=== PATIENT | male | born 1970 ===

== ENCOUNTER 2022-09-19 08:27 | Emergency (ER) | payer OTHER, SELFPAY ==
[2022-09-19 08:36] VITALS: BP 157/94; PULSE 73; RESP 20; TEMP 36.9; O2SAT 98
--- NOTE | 2022-09-19 08:56 | ED.EAR ---
HPI - Ear Problem General Chief complaint: Ear Stated complaint: Ear Pain Source: patient Mode of arrival: ambulatory Limitations: no limitations History of Present Illness HPI Narrative: Patient presents for evaluation of right-sided ear pain for the last 5 days. He indicates he has chronic hearing loss and uses hearing aids. He believes that the hearing aid caused his right ear to become infected. He reports some drainage from that ear and swelling. He irrigated the ear with warm water, took some dayquil and applied some OTC ear drops which all seemed to help. pain did radiate into right side of his face and right jaw. No fever, chills, nausea or vomiting. Related Data Home Medications Medication Instructions Recorded Confirmed No Home Medications 09/19/22 09/19/22 Allergies Allergy/AdvReac Type Severity Reaction Status Date / Time morphine Allergy Loss of Verified 09/19/22 08:54 Consciousness Review of Systems Review of Systems: CONSTITUTIONAL: Denies fever, chills, or sweats. EYES: Denies visual changes, redness, or discharge. ENT: Reports right sided ear pain and drainage. Reports chronic hearing loss. Denies rhinorrhea, congestion, sore throat CARDIOVASCULAR: Denies chest pain, palpitations, or edema. RESPIRATORY: Denies cough or dyspnea. GASTROINTESTINAL: Denies abdominal pain, nausea, vomiting, or diarrhea. GENITOURINARY: Denies dysuria or hematuria. SKIN: Denies rash or itching. MUSCULOSKELETAL: Denies back pain, joint pain, or myalgia. NEUROLOGIC: Denies headache, numbness, dizziness, or weakness. PSYCHIATRIC: Denies anxiety or depression. [facility] Past Medical History Medical History Hearing loss Surgical History Surgical History History of back surgery History of ear surgery History of knee surgery Family History Family History Mother Family history non-contributory Social History Social History Smoking status: Current every day smoker Gender identity (if verbalized by the patient): Male Spiritual care concerns: No Exam Narrative: GENERAL: Well-appearing, well-nourished, and in no acute distress. HEAD: Normocephalic, atraumatic. EYES: PERRLA and EOMI. ENT: Nares clear, no rhinorrhea or epistaxis. Mucous membranes moist. Oropharynx without tonsillar hypertrophy exudate or other lesions. There is swelling, erythema and white/yellow exudate in right ear canal NECK: Supple. No adenopathy or masses. No carotid bruits or JVD CHEST: Clear to auscultation. No respiratory distress. No wheezes rales or rhonchi HEART: Regular rate and rhythm. No murmur heard. Normal peripheral pulses. ABDOMEN: Soft, nontender, nondistended, normal active bowel sounds. EXTREMITIES: Normal range of motion. No edema. SKIN: Warm, dry, no rash. NEURO: No focal deficits. Alert and oriented x3. PSYCH: Normal mood and affect. Course Course Emergency Course: This is a 52-year-old male who presented for evaluation of right-sided ear pain and drainage. On exam he has evidence of otitis externa. Will treat with ofloxacin. Follow up outpatient for further evaluation and treatment include the ER for worsening symptoms. Patient is in agreement with plan of care. Level of Care: Express Care Visit Vital Signs Vital signs: Vital Signs Temperature 36.9 C 09/19/22 08:36 Pulse Rate 73 09/19/22 08:36 Respiratory Rate 20 09/19/22 08:36 Blood Pressure 157/94 H 09/19/22 08:36 Pulse Oximetry 98 09/19/22 08:36 Oxygen Delivery Room Air 09/19/22 08:36 Temperature 36.9 C 09/19/22 08:36 Pulse Rate 73 09/19/22 08:36 Respiratory Rate 20 09/19/22 08:36 Blood Pressure 157/94 H 09/19/22 08:36 Pulse Oximetry 98 09/19/22 08:36 Oxygen Delivery Mariam
== END 2022-09-19 09:02 | disposition home or self-care (01) ==
PROVIDERS: Emergency Provider Nurse Practitioner; PCP Family Medicine
DX: H60.91 Unspecified otitis externa, right ear (principal)
CPT/HCPCS: 99213; G0463

== ENCOUNTER 2023-01-18 11:01 | Emergency (ER) | payer OTHER, SELFPAY ==
[2023-01-18 11:09] VITALS: BP 139/84; PULSE 104; RESP 16; TEMP 37.1; O2SAT 95
--- NOTE | 2023-01-18 11:29 | ED.NAVMDI ---
HPI - Nausea/Vomiting/Diarrhea General Chief complaint: Nausea/Vomiting/Diarrhea Stated complaint: Nausea/Diarrhea Time Seen by Provider: 01/18/23 11:30 Source: patient and RN notes reviewed Mode of arrival: ambulatory Limitations: no limitations History of Present Illness HPI Narrative: 52-year-old male presented for complaint of diarrhea and nausea since 0230 this morning. States it occurred about every 5 minutes for 4 hours. States he feels super dehydrated. Reports decreased appetite. Has been drinking lemonade and water. Denies changes to medication or recent abx. States he ate taco isaac last night. denies Chest pain, palpitations,abdominal pain, flank pain, vomiting, hematuria, hematochezia or melena. denies sick contacts. history of bladder cancer. Concurrently smokes 3/4 pack per day, down from 2ppd. Related Data Home Medications Medication Instructions Recorded Confirmed bupropion HCl 100 mg tablet,12 hr mg PO 01/18/23 sustained-release lisinopril 01/18/23 Allergies Allergy/AdvReac Type Severity Reaction Status Date / Time morphine Allergy Loss of Verified 09/19/22 08:54 Consciousness Review of Systems Review of Systems: CONSTITUTIONAL: Denies body aches, fever, chills ENT: Denies rhinorrhea, congestion CARDIOVASCULAR: Denies chest pain, palpitations, or edema. RESPIRATORY: Denies cough or dyspnea. GASTROINTESTINAL: Endorses nausea, diarrhea. Denies vomiting, abdominal pain, hematochezia, melena GENITOURINARY: Denies dysuria, hematuria, or CVA tenderness. SKIN: Denies rash, itching, or wounds. MUSCULOSKELETAL: Denies back pain, joint pain, or myalgia. NEUROLOGIC: Denies headache, numbness, tingling, or weakness. All systems reviewed & are unremarkable except as noted in HPI and below PMFSH Past Medical History Medical History (Updated 01/18/23 @ 11:54 by Michaela Castro APRN) Bladder cancer Hearing loss Hypertension Surgical History Surgical History History of back surgery History of ear surgery History of knee surgery Family History Family History Mother Family history non-contributory Social History Social History (Reviewed 01/18/23 @ 11:54 by COIR Hernandez Smoking status: Current every day smoker Gender identity (if verbalized by the patient): Male Spiritual care concerns: No Comments At time of signature, I have reviewed and agree with nursing past medical, surgical, social and family history unless otherwise noted. Please see nursing chart for further information. There is no relevant family history pertinent to the presenting complaint Exam Narrative: GENERAL: ill-appearing, in no acute distress. EYES: EOMI. Conjunctivae normal. ENT: Mucous membranes pink and moist. CHEST: No respiratory distress. Clear to auscultation. HEART: Regular rate and rhythm. No murmur appreciated. Normal peripheral pulses. ABDOMEN: abd soft, nondistended, normal active bowel sounds. Nontender abdomen; No guarding, rebound tenderness, asymmetry EXTREMITIES: Normal range of motion. No edema. SKIN: Warm, dry, no rash. Capillary refill normal. Normal skin turgor. NEURO: No focal deficits. Alert and oriented x3. PSYCH: Normal affect. Course Course Emergency Course: Patient is aware of diagnosis, understands and agrees to treatment plan. Anticipatory guidance given. Patient agrees to follow-up as directed and is aware of reasons to seek care at the emergency department. Portions of this record may have been created with voice recognition software Level of Care: Express Care Visit Vital Signs Vital signs: Vital Signs Temperature 98.7 F 01/18/23 11:09 Pulse Rate 104 H 01/18/23 11:09 Respiratory Rate 16 01/18/23 11:09 Blood Pressure 139/84 01/18/23 11:09 Pulse Oximetry 95 01/18/23 11:09 Oxygen Delivery Room Air 01/18/23 1
== END 2023-01-18 11:46 | disposition home or self-care (01) ==
PROVIDERS: Emergency Provider Nurse Practitioner Family; PCP Family Medicine
DX: R19.7 Diarrhea, unspecified (principal); I10 Essential (primary) hypertension; F17.200 Nicotine dependence, unspecified, uncomplicated
CPT/HCPCS: 99213; G0463

== ENCOUNTER 2024-12-07 14:36 | Emergency (ER) | payer BC, SELFPAY ==
--- NOTE | 2024-12-07 14:39 | ED_ITS ---
HPI - URI/Sore Throat General Chief Complaint: Upper Respiratory Infection Stated Complaint: Cough/Fever/Headache Time Seen by Provider: 12/07/24 14:39 Source: patient Mode of arrival: ambulatory Limitations: no limitations History of Present Illness HPI Narrative: Patient is a 54-year-old male that presents with cough, fever and headache that started last night. Patient also reports right ear pain for a few days, with history of ear infections. Patient wears hearing aids. Patient has history of bronchitis. Denies any congestion, sore throat, ear pain, nausea, vomiting, diarrhea. Has not taken anything for symptoms. Related Data Home Medications ?Medication ?Instructions ?Recorded ?Confirmed ?Last Taken ?Type bupropion HCl 100 mg tablet,12 hr mg PO 01/18/23 Unknown History sustained-release lisinopril 01/18/23 Unknown History Allergies Allergy/AdvReac Type Severity Reaction Status Date / Time morphine Allergy Loss of Verified 12/07/24 15:06 Consciousness Review of Systems Review of Systems: All systems reviewed & are unremarkable except as noted in HPI and below Constitutional: Constitutional: Denies body ache(s), Denies chills, Denies fatigue, Reports fever(s), Reports headache(s), Denies malaise and Denies weakness Eyes: Eyes: Denies blurry vision, Denies itchy eyes and Denies loss of vision ENT: Denies otalgia, Denies headache(s), Denies nasal congestion, Denies sinus pain and Denies sore throat Cardiovascular: Cardiovascular: Denies chest pain, Denies irregular heart rhythm and Denies dyspnea Respiratory: Respiratory: Reports cough and Denies dyspnea Gastrointestinal: Gastrointestinal: Denies abdominal pain, Denies diarrhea, Denies nausea and Denies vomiting Musculoskeletal: Musculoskeletal: Denies back pain, Denies myalgias and Denies arthralgias Integumentary/Breasts: Skin/Breast: Denies pruritus and Denies rash Neurologic: Reports headache(s), Denies loss of vision and Denies weakness Psychiatric: Psychiatric: Reports no additional psychiatric complaints Endocrine: Endocrine: Denies fatigue Allergic/Immunologic: Allergic/Immunologic: Denies itchy eyes PMFSH Past Medical History Medical History Hypertension Bladder cancer Hearing loss Surgical History Surgical History History of back surgery History of knee surgery History of ear surgery Family History Family History Mother Family history non-contributory Social History Social History Smoking status: Current every day smoker Gender identity (if verbalized by the patient): Male Spiritual care concerns: No Comments At time of signature, agree with nursing past medical, surgical, social and family history. There is no relevant family history pertinent to the presenting complaint. Exam Const: General: cooperative, healthy appearing, comfortable, no acute distress and well nourished Nutritional Appearance: well nourished Orientation/consciousness: patient oriented x3 Limitations: no limitations HENMT: Head: normal to inspection, normocephalic and atraumatic Ears: hearing grossly normal bilaterally, external ears normal, TM normal on the left, EAC's normal, no periauricular adenopathy and TM abnormal bulging on the right and erythematous on the right Face/Nose/Sinus: Normal external nose present, Abnormal mucous membranes and turbinates present erythematous bilateral and diffuse, normal facial exam, sinuses nontender and face symmetric Face and sinus: normal facial exam, sinuses nontender and face symmetric Mouth: Yes Normal oral and palatal mucosa present, Yes lip normal, Yes tongue normal, Yes Normal salivary glands and ducts present, Yes oropharynx normal and Yes moist mucous membranes Teeth and gingiva: dentition normal Throat: posterior oropharynx normal, tonsils normal and uvula midline Eyes: General: appearance normal, both eyes and all related structures Alignment and Position: alignment normal and position normal Periorbital: periorbital findings normal Eyelids: eyelids normal Pupils: Equal, round and reactive pupils present Neck: Neck: normal visual inspection, full ROM, no lymphadenopathy and supple Chest: Chest palpation & inspection: normal inspection of the chest and normal palpation of entire chest wall Resp: Effort & Inspection: normal respiratory effort, able to speak in complete sentences and Actively coughing dry Auscultation: clear to auscultation bilaterally, no crackles, no rales, no rhonchi and no wheezes Cardio: Rate: regular rate Rhythm: regular rhythm Heart sounds: S1 normal heart sound present and S2 normal heart sound present GI: Inspection: normal to inspection Skin: General skin exam: normal color and no rashes or lesions noted Neuro: General: patient oriented x3 and moves all extremities Cranial nerves: Yes Equal, round and reactive pupils present Speech: normal speech Gait exam (Neuro): Normal gait present Extrem: General: normal to inspection, full ROM and no edema Psych: Appearance: grossly normal and well kempt Mental Status: mental status grossly normal Speech and movement: Normal speech and movement present Affect: normal affect Attitude: cooperative Thought process: Normal thought process present Course Course Emergency Course: Discharge instructions reviewed with patient, as well as provided in writing per nursing staff. The instructions also include specific and strict return/GO TO THE ER as well as f/u information. All questions have been answered, and the patient deny any further questions with discharge and discharge plan. Portions of this record may have been created with voice recognition software Level of Care: Express Care Visit Vital Signs Vital signs: Vital Signs Temperature 36.5 C 12/07/24 14:50 Pulse Rate 74 12/07/24 14:50 Respiratory Rate 16 12/07/24 14:50 Blood Pressure 134/82 12/07/24 14:50 Pulse Oximetry 96 12/07/24 14:50 Oxygen Delivery Room Air 12/07/24 14:50 Temperature 36.5 C 12/07/24 14:50 Pulse Rate 74 12/07/24 14:50 Respiratory Rate 16 12/07/24 14:50 Blood Pressure 134/82 12/07/24 14:50 Pulse Oximetry 96 12/07/24 14:50 Oxygen Delivery Room Air 12/07/24 14:50 Reviewed MDM - URI/Sore Throat MDM Narrative Medical decision making narrative: Pt well hydrated appearing, in no respiratory distress, hemodynamically stable. Recommend supportive care. The patient is stable at time of discharge the clinical impression was discussed and the patient was given the opportunity to ask questions, which were addressed as completely as possible given the infor mation available at present. Anticipatory guidance and return to care precautions were discussed and the importance of primary care follow-up was stressed and encouraged. The patient voiced understanding of the plan, indications to return, and the need for follow-up. Differential diagnosis considered: Prado virus, strep pharyngitis, allergic rhinitis, upper respiratory tract infection, sinusitis, rhinosinusitis, nasopharyngitis. viral pharyngitis, otitis media, otitis externa, otitis effusion, foreign body, cerumen impaction, viral syndrome, and influenza.? Exam findings show no acute concerns or changes; patient is non-toxic appearing and is in no distress.? Patient is appropriate for outpatient treatment and follow- up.? Medical Records Attestation: I reviewed the patient's medical records. Lab Data Attestation: I reviewed the patient's lab results. Labs: negative for covid and flu Discharge Plan Discharge Clinical Impression: Bronchitis Otitis media Qualifiers: Otitis media type: suppurative Chronicity: acute Laterality: right Recurrence: non-recurrent Spontaneous tympanic membrane rupture: without spontaneous rupture Qualified Code(s): H66.001 - Acute suppurative otitis media without spontaneous rupture of ear drum, right ear Patient Disposition: Home, Self-Care Condition: Stable Instructions: Ear Infection (GEN), Acute Bronchitis (ED) Additional Instructions: Take antibiotic as prescribed. Take steroids per package instruction. Use Tessalon Perles as needed for cough. Use inhaler with spacer as needed. Other symptomatic treatments include: -Alternate Tylenol and Motrin per package directions for fever or pain. -Antihistamine medication such as Benadryl at night and Zyrtec/Claritin/Leslie during the day can help improve symptoms. -Use Flonase twice a day for 5 days then daily to help reduce the inflammation and dry up your sinuses. -You can also use Sudafed or Mucinex. Be sure to drink plenty of water with these medications at least 8 ounces with every dose and it is important to drink 8 to 10 glasses of water per day. Water is a natural decongestant -Eat and drink things that are easy to swallow, like tea or soup, or popsicles. -Oral rinses such as: Salt water gargles and/or may use topical anesthetic (eg. Chloraseptic spray) or lozenges to relieve dryness or throat pain). -Frequent hand washing or hand line department supervisor is one of the best ways to prevent spread of infection. -Using a vaporizer or humidifier at night will also help thin secretions and help with coughing up phlegm. -Follow up with primary care provider in 3-5 days if condition is not improving - For new or worsening symptoms go directly to the nearest ER Patient Language: Malay Prescriptions: New (DME) Aerochamber MV Spacer See Rx Instructions .Route Qty: 1 0RF Rx Instructions: As directed amoxicillin 875 mg tablet 875 mg PO Q12H 7 Days Qty: 14 0RF benzonatate 100 mg capsule 100 mg PO BID PRN (Reason: cough) Qty: 14 0RF methylprednisolone [Medrol (Valerio)] 4 mg tablets,dose pack See Rx Instructions .ROUTE .COMPLEX Qty: 21 0RF Rx Instructions: orally per package directions albuterol sulfate 90 mcg/actuation HFA aerosol inhaler 2 puff inhalation QID PRN (Reason: shortness of breath or wheezing) Qty: 6.7 0RF fluticasone propionate [Flonase Allergy Relief] 50 mcg/actuation spray,suspension 1 spray intranasal DAILY Qty: 16 0RF Rx Instructions: administer into each nostril No Action bupropion HCl 100 mg tablet sustained-release 12 hr PO lisinopril ondansetron 4 mg tablet,disintegrating 4 mg PO Q8H PRN (Reason: nausea and vomiting) Qty: 20 0RF Follow-up/Referrals: Ozzy,Vicente Kelly MD [Primary Care Provider] - 3 Days Stand Alone Forms: Work/School Release IP Time of Disposition: 15:31
[2024-12-07 14:50] VITALS: BP 134/82; PULSE 74; RESP 16; TEMP 36.5; O2SAT 96
[2024-12-07 16:31] LABS: EDCOVIDSCREEN Negative (Negative); EDINFLUASCREEN Negative (Negative); EDINFLUBSCREEN Negative (Negative)
--- OUTSIDE RECORDS SUMMARY | 2024-12-08 05:46 | XMS_ITS | Clinical Summary ---
Author Organization [facility] Address [address] [place] [address] Phone Care Team Providers Care Clamp Truck Driver Name Role Phone Vicente Preciado MD Primary Care Provider [phone] Allergies Active Allergy Reactions Criticality Noted Date Comments Morphine Anaphylaxis 06/04/2018 Medications terazosin (HYTRIN) 2 MG CapsuleIndicatio ns:last 3 days Take 2 mg by mouth daily. Active buPROPion SR (WELLBUTRIN SR) 100 MG TABLET SR 12 HR 1 09/12/2018 Active Active Problems Problem Noted Date Diagnosed Date Malignant neoplasm of overlapping sites of bladd er 06/14/2018 Family History Medical History Relation Name Comments Kidney Stones Brother Cancer Father colon cancer Congestive Heart Failure Father Cancer Maternal Aunt pancreatic can cer Heart Attack Maternal Grandfather Heart Disease Maternal Grandmother Prostate Cancer Other 1 cousin Kidney Stones Other 2 nephew Cancer Paternal Uncle 1 Cancer Paternal Uncle 2 Cancer Paternal Uncle 3 Cancer Paternal Uncle 4 Cancer Paternal Uncle 5 Cancer Paternal Uncle 6 Cancer Paternal Uncle 7 Cancer Paternal Uncle 8 Cancer Paternal Uncle 9 Cancer Paternal Uncle 10 Relation Name Status Comments Brother Father Maternal Aunt Maternal Grandfather Maternal Grandmother Other 1 cousin Alive Other 2 nephew Alive Paternal Uncle 1 Paternal Uncle 2 Paternal Uncle 3 Paternal Uncle 4 Paternal Uncle 5 Paternal Uncle 6 Paternal Uncle 7 Paternal Uncle 8 Paternal Uncle 9 Paternal Uncle 10 Social History Tobacco Use Types Packs/Day Years Used Date Smoking Tobacco: Former Cigarettes Q uit: 01/04/2019 Smokeless Tobacco: Never Tobacco Cessation:Counseling Given: No Comments:4 cig per day Alcohol Use Standard Drinks/Week Comments Yes 0 (1 standard drink = 0.6 oz pur e alcohol) rarely Sexually Active Control Partners Comments Yes Female Sex and Gender Information Value Date Recorded Sex Assigned at Not on file Legal Sex Male 8:06 PM CDT Gender Identity Not on file Sexual Orientation Not on file Last Filed Vital Signs Vital Sign Reading Time Taken Comments Blood Pressure 122/88 01/16/2021 9:05 AM MANAGER GYN Pulse 72 01/16/2021 8:51 AM MANAGER GYN Temperature 36.8 ??C (98.2 ??F) 01/16/2021 8:51 AM CS T Respiratory Rate 16 01/16/2021 8:51 AM MANAGER GYN Oxygen Saturation 98% 01/16/2021 8:51 AM MANAGER GYN Inhaled Oxygen Concentration - - Weight 91.9 kg (202 lb 9.6 oz) 01/16/2021 8:51 A M MANAGER GYN Height 157.5 cm (5' 2 ) 01/16/2021 8:51 AM MANAGER GYN Body Mass Index 37.06 01/16/2021 8:51 AM MANAGER GYN Plan of Treatment Health Maintenance Due Date Last Done Comments Hepatitis C Virus (HCV) Screening 1969 TdaP Immunization 1969 Hepatitis B Immunization (1 of 3 - 19+ 3-dose series) 1988 Pneumococcal Immunization (5 0+ years) (1 of 2 - PCV) 1988 Zoster Immunization (1 of 2) 1988 Colonoscopy 2014 Colorectal Cancer Screening 2014 Cologuard 2019 Immunochemical Fecal Occult Blood 2019 SARS-COV-2 Immunization (3 - Pfizer risk series) 03/30/2021 03/02/2021, 02/09/2021 PSA Discussion 2024 Influenza Immunization (#1) 2024 Respiratory Syncytial Virus (RSV) Immunization (Adult) (1 - 1-dose 75+ series) 2044 Meningococcal Immunization (ACWY) Aged Out No longer eligible b ased on patient's age to complete this topic Rotavirus Immunization Aged Out No lo nger eligible based on patient's age to complete this topic Insurance [facility] [place] [id number] Care Teams Clamp Truck Driver Relationship Specialty Start Date End Date Vicente Preciado MD [address] [place] [address] PCP - General Family Medicine 06/04/18
--- OUTSIDE RECORDS SUMMARY | 2024-12-08 05:46 | XMS_ITS | Clinical Summary ---
Author Organization [facility] Address [address] [place] [address] Care Team Providers Care Solar Thermal Technician Name Role Phone Unavailable Primary Care Provider Unavailabl e Source Comments [facility],non-owned Affiliates and Associated Physician Practices is amultiple site organization consisting of ambulatory clinics and hospital sitesin [place], [place], [place] and [place]. This disclosure is being madepursuant to the Care Everywhere program and may not contain all information available regarding this patient. Last updated 18.[facility] [employer] Social History Tobacco Use Types Packs/Day Years Used Date Smoking Tobacco: Never Assessed Sex and Gender Information Value Date Recorded Sex Assigned at Not on file Gender Identity Not on file Sexual Orientation Not on file Plan of Treatment Health Maintenance Due Date Last Done Comments COLOGUARD (AGES 45-75) - COL ON CA SCREENING 1969 COLON MONITORING 1969 COLONOSCOPY - COLON CA SCREENING 1969 CT COLONOGRAPHY - COLON CA SCREENING 1969 Colorectal Cancer Screening 1969 FIT - COLON CA SCREENING 1969 FLEX SIG - COLON CA SCREENING 1969 LIPID TESTING 1969 HIV SCREENING 1984 HEPATITIS C SCREENING 07/10/1987 DTAP/TDAP/TD VACCINES (1 - Tdap) 1988 HEPATITIS B VACCINE (1 of 3 - 19+ 3-dose series) 1988 PNEUMOCOCCAL VACCINE 50+ (1 of 1 - PCV) 2019 ZOSTER VACCINE (1 of 2) 2019 COVID-19 VACCINE (2023-2 5 season) 2024 INFLUENZA VACCINE (#1) 2024 DEPRESSION SCREENING 11/15/2024 HIB VACCINE Aged Out No longer eligi ble based on patient's age to complete this topic HPV VACCINE Aged Out No longer eligi ble based on patient's age to complete this topic MENINGOCOCCAL (Group B) VACCINE Aged Out No longer eligible based on patient's age to complete this topic MENINGOCOCCAL VACCINE Aged Out No celestina luzma eligible based on patient's age to complete this topic PNEUMOCOCCAL VACCINE Aged Out No long er eligible based on patient's age to complete this topic
--- OUTSIDE RECORDS SUMMARY | 2024-12-08 05:46 | XMS_ITS | Patient Health Summary ---
Author Organization [facility] Address [address] [place] [address] Care Team Providers Care Jewel Inserter Name Role Phone Unavailable Primary Care Provider Unavailabl e Note from [facility],non-owned Affiliates and Associated Physician Practices is amultiple site organization consisting of ambulatory clinics and hospital sitesin [place], [place], [place] and [place]. This disclosure is being madepursuant to the Care Everywhere program and may not contain all information available regarding this patient. Last updated 18.[facility] [place] Social History Tobacco Use Types Packs/Day Years Used Date Smoking Tobacco: Never Assessed Sex and Gender Information Value Date Recorded Sex Assigned at Not on file Gender Identity Not on file Sexual Orientation Not on file Procedures * MRI WRIST LEFT WO CONTRAST(Performed 10/25/2009) Performed for Pain in Joint, Forearm * XR OUTSIDE CONSULTATION(Performed 09/18/2009) Performed for Pain in Limb Results * MRI WRIST WO CONT LEFT (10/25/2009 4:35 PM ENERGY ASSISTANT) Anatomical Region Laterality Modality Wrist / Hand, Upper Extremity Ma gnetic Resonance 10/28/2009 8:17 AM ENERGY ASSISTANT Impressions 10/28/2009 9:01 AM ENERGY ASSISTANT 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 There is thickening and increased signal in the radial collateral ligament at the first CMC articulation related to a sprain ??of this ligament. The tendons in the thumb appear intact. Narrative 10/28/2009 9:01 AM ENERGY ASSISTANT MRI left ??wrist HISTORY: ??left wrist pain FINDINGS: The scapholunate ligament, lunatotriquetral ligament, and the triangular ??fibrocartilage are all intact. No fracture is ??identified. The ligaments at the first MCP joint appear intact. There is thickening of the radial collateral ligament at the first CMC articulation related to a ??sprain of this ligament. Mild degenerative change is seen at the first CMC articulation. The flexor pollicis longus tendon appears intact. The extensor pollicis brevis and extensor pollicis longus tendons are intact. The abductor pollicis tendon also appears intact. The median nerve in the carpal tunnel does not demonstrate an abnormality. Procedure Note Devyn Emery MD - 10/28/2009 MRI left wrist HISTORY: left wrist pain FINDINGS: The scapholunate ligament, lunatotriquetral ligament, and the triangular fibrocartilage are all intact. No fracture is identified. The ligaments at the first MCP joint appear intact. There is thickening of the radial collateral ligament at the first CMC articulation related to a sprain of this ligament. Mild degenerative change is seen at the first CMC articulation. The flexor pollicis longus tendon appears intact. The extensor pollicis brevis and extensor pollicis longus tendons are intact. The abductor pollicis tendon also appears intact. The median nerve in the carpal tunnel does not demonstrate an abnormality. 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 There is thickening and increased signal in the radial collateral ligament at the first CMC articulation related to a sprain of this ligament. The tendons in the thumb appear intact. 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 No fracture. ??No bony erosions are seen. 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 ? Reading Radiologist- AUDRA BOWEN MD ? Releasing RadiologistErickson BOWEN MD ? Released Date Time- 09/19/09 1250 ? Curriculum Coach- PTM ? ADM- COVERT,DANIELLE Navarro ? 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 No fracture. No bony erosions are seen. 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 Reading RadiologistErickson BOWEN MD Releasing RadiologistErickson BOWEN MD Released Date Time- 09/19/09 1250 Curriculum Coach- PTM ADM- COVERT,DANIELLE Navarro ATT- COVERTDANIELLE REF- CON- PCP- SCP- Danielle Corrigan MD DIAGNOSTIC IMAGING O [facility]
--- OUTSIDE RECORDS SUMMARY | 2024-12-08 05:46 | XMS_ITS | Referral Summary ---
Author Organization [facility] Address [address] [place] [address] Care Team Providers Care Legal Services Professional Name Role Phone Unavailable Primary Care Provider Unavailabl e Source Comments [facility],non-[facility] Affiliates and Associated Physician Practices is amultiple site organization consisting of ambulatory clinics and hospital sitesin [place], [place], [place] and [place]. This disclosure is being madepursuant to the Care Everywhere program and may not contain all information available regarding this patient. Last updated 18.[facility] Social History Tobacco Use Types Packs/Day Years Used Date Smoking Tobacco: Never Assessed Sex and Gender Information Value Date Recorded Sex Assigned at Not on file Gender Identity Not on file Sexual Orientation Not on file Plan of Treatment Not on file
--- OUTSIDE RECORDS SUMMARY | 2024-12-08 05:46 | XMS_ITS | Data Portability ---
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 [email or web address] Not available 07/05/2018 13:56:46 11/11/2022 11/11/2022 Pt desires to resume treatment for BP. [email or web address] Not available 11/12/2022 13:06:50 02/29/2024 02/29/2024 Pt is stable and doing well. [email or web address] Not available 03/02/2024 11:20:48 Plan of Treatment Reminders Order Date Submit Date Provider Last Modified By Organization Details Last Modified Time Details Appointments None recorded. Lab urinalysi s, dipstick 2014 015 In-Office Order, Internal Use Only DO Not Attach Compendium DO Not Attach Compendium, Do Not Delete/merge, [id number] 5 17:37:31 TSH, serum or plasma 2014 015 [facility], [address] [facility] [address], [place], [address], 5 08:49:37 CMP, serum or plasma 2014 015 [facility], [address] [facility], [place], [address], 5 08:49:36 CBC 2014 015 [facility], [address] [facility] [address], [place], [address], 5 08:49:37 SARS CoV 2 RNA (COVID-19 ), QL, sole blacker-PCR, respirato ry specimen - denies having any COVID-19 symptoms. 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 [facility] 115 2019 020 [facility] (Lab), [address], [place], [address], 0 20:28:33 HbA1c (hemoglob in A1c), blood 2021 022 [facility], [address] [facility], [address], [place], [address], 12:49:57 lipid panel, serum 2021 022 [facility], [address] [facility], [address], [place], [address], 12:49:58 CMP, serum or plasma 2021 022 [facility], [address] [facility], [facility], [place], [address], 12:49:56 CBC w/ auto diff 2021 022 [facility], [address] [facility], [address], [place], [address], 12:49:57 TSH, ultra-sen sitive, serum 2021 022 [facility], [address] [facility], [address], [place], [address], 12:49:58 PSA, total, serum or plasma 2021 022 [facility], [address] [facility], [address], [place], [address], 12:49:57 vitamin D, 25-hydrox y, total, serum 2021 022 [facility], [address] [facility], [facility], [place], [address], 12:49:57 HbA1c (hemoglob in A1c), blood 2023 024 [facility], [address] [facility], [facility], [place], [address], 4 06:18:39 PSA, total, serum or plasma 2023 024 [facility], [address] [place] [address], [facility], [place], [address], 4 06:18:41 CBC w/ auto diff 2023 024 [facility], [address] [place] [address], [facility], [place], [address], 4 06:18:40 CMP, serum or plasma 2023 024 [facility], [address] [place] [address], [facility], [place], [address], 4 06:18:38 lipid panel, serum 2023 024 [facility], [address] [place] [address] 2, [place], [address], 4 06:18:38 TSH, ultra-sen sitive, serum 2023 024 [facility], [address] [place] [address], [facility], [place], [address], 4 06:18:40 Referral None recorded. Procedures None recorded. Surgeries None recorded. Imaging CT, abdomen and pelvis 2014 015 [email or web address] Not available 5 09:24:48 Medication Orders terazosin 5 mg capsule 2014 015 [facility], [address] [place] [address], [address], 2 12:14:10 naproxen 500 mg tablet 2014 015 [facility], [address] [place] [address], [address], 2 12:13:57 Wellbutri n SR 100 mg tablet, 12 hr sustained -release 2017 018 [facility], [address] [place] [address], [address], 2 12:13:49 Celebrex 100 mg capsule 2021 022 [email or web address], [address] [place] [address], [address], 4 14:23:18 lisinopri l 10 mg tablet [email or web address] [facility] [address] [facility], [address] [place] [address], [address], 4 11:44:58 Wellbutri n SR 100 mg tablet, 12 hr sustained -release 2021 022 [facility], [address] [place] [address], [address], 2 12:44:57 Pataday Twice Daily Relief 0.1 % eye drops 2023 024 [facility] [address], [address] [place] [address], [address], 4 11:46:36 lisinopri l 20 mg tablet 2023 024 [facility], [address] [place] [address], [address], 11:41:34 Patient TargetsNo targets recorded. Patient Instructions Encounter Date Encounter Id Patient Instructions Last Modified By Organization Details Last Modified Time 06/10/2015 [id number] kidney stone: care instructions [email or web address] Not available 06/10/2015 17:45:39 07/10/2020 [id number] Reviewed the following recommendations: -Stay home and separate from others as much as possible. -Monitor your symptoms and seek medical attention for trouble breathing, persistent chest pain, confusion, or bluish lips or face. -Wear a mask if you must be around other people. -Wash your hands often for 20 seconds with soap and water and clean high-touch surfaces daily -You may discontinue home isolation if your symptoms are improving and it has been 10 days since symptoms started. [email or web address] Not available 07/10/2020 12:59:21 11/11/2022 [id number] osteoarthritis: care instructions Not available 11/11/2022 12:56:50 When You Want to Lose Weight: Care Instructions [email or web address] Not available 11/11/2022 12:49:45 learning about high blood pressure [email or web address] Not available 11/11/2022 12:52:59 02/29/2024 [id number] sleep apnea: care instructions [email or web address] Not available 02/29/2024 11:48:00 When You Want to Lose Weight: Care Instructions [email or web address] Not available 02/29/2024 11:42:30 high blood pressure: care instructions [email or web address] Not available 02/29/2024 11:41:17 learning about high blood pressure [email or web address] Not available 02/29/2024 11:41:17 Reason for Referral None Reported. Results Created Date Observation Date Name Description Value Unit Range Abnormal Flag Note LastModifiedBy Organization Detail LastModifiedTime 06/10/20 15 06/10/2015 urina lysis , dipst ick Leukocytes Negati ve Not Available In-Office Order Internal Use Only DO Not Attach Compendium DO Not Attach Compendium, Do Not Delete/merge, [id number] 06/10/2015 16:50:09 06/10/20 15 06/10/2015 urina lysis , dipst ick Nitrite negati ve Not Available In-Office Order Internal Use Only DO Not Attach Compendium DO Not Attach Compendium, Do Not Delete/merge, 06/10/2015 16:50:06/10/2006/10/2015 urina lysis , dipst ick Urobilinogen .2 Not Available In-Of fice Order Internal Use Only DO Not Attach Compendium DO Not Attach Compendium, Do Not Delete/merge, 06/10/2015 16:50:06/10/2006/10/2015 urina lysis , dipst ick Protein Negati ve Not Available In-Office Order Internal Use Only DO Not Attach Compendium DO Not Attach Compendium, Do Not Delete/merge, 06/10/2015 16:50:06/10/2006/10/2015 urina lysis , dipst ick pH 5.5 Not Available In-Office Order Internal Use Only DO Not Attach Compendium DO Not Attach Compendium, Do Not Delete/merge, 06/10/2015 16:50:06/10/2006/10/2015 urina lysis , dipst ick Blood Small Not Available In-Office Order Internal Use Only DO Not Attach Compendium DO Not Attach Compendium, Do Not Delete/merge, 06/10/2015 16:50:06/10/2006/10/2015 urina lysis , dipst ick Specific Garber 1.025 Not Available In-Off ice Order Internal Use Only DO Not Attach Compendium DO Not Attach Compendium, Do Not Delete/merge, 06/10/2015 16:50:06/10/2006/10/2015 urina lysis , dipst ick Ketone Negati ve Not Available In-Office Order Internal Use Only DO Not Attach Compendium DO Not Attach Compendium, Do Not Delete/merge, 06/10/2015 16:50:06/10/2006/10/2015 urina lysis , dipst ick Bilirubin Negati ve Not Available In-Office Order Internal Use Only DO Not Attach Compendium DO Not Attach Compendium, Do Not Delete/merge, 06/10/2015 16:50:06/10/2006/10/2015 urina lysis , dipst ick Glucose Negati ve Not Available In-Office Order Internal Use Only DO Not Attach Compendium DO Not Attach Compendium, Do Not Delete/merge, 06/10/2015 16:50:09 06/10/2006/10/2015 urina lysis , dipst ick Appearance Clear Not Available In-Offi ce Order Internal Use Only DO Not Attach Compendium DO Not Attach Compendium, Do Not Delete/merge, 06/10/2015 16:50:09 06/10/2006/10/2015 urina lysis , dipst ick Color Yellow Not Available In-Office Order Internal Use Only DO Not Attach Compendium DO Not Attach Compendium, Do Not Delete/merge, 06/10/2015 16:50:09 06/10/2006/11/2015 CMP, serum or plasm a glucose, serum 99 mg/dL 65-99 SPECI MEN RECEI MERLENE IN CONTA CT WITH CELLS . NO VISIB LE HEMOL YSIS PRESE NT. HOWEV ER GLUC MAY BE DECRE ASED AND K INCRE ASED. CLINI SAM CORRE LATIO N INDIC ATED. Not Available [facility] ([facility]) [address] [place], [address], 06/11/2015 08:49:36 06/10/20 15 06/11/2015 CMP, serum or plasm a BUN 11 mg/dL 6-24 Not Available [facility] ([facility]) [address] [place], [address], 06/11/2015 08:49:36 06/10/2006/11/2015 CMP, serum or plasm a creatinine, serum 0.81 mg/dL 0.76-1 .27 Not Available [facility] ([facility]) [address] [place], [address], 06/11/2015 08:49:36 06/10/20 15 06/11/2015 CMP, serum or plasm a eGFR if nonafricn AM 107 mL/mi n/1.7 3 >59 Not Available [facility] ([facility]) [address] [facility], [place], [address], 06/11/2015 08:49:36 06/10/20 15 06/11/2015 CMP, serum or plasm a eGFR if africn AM 124 mL/mi n/1.7 3 >59 Not Available [facility] ([facility]) [address] [facility], [place], [address], 06/11/2015 08:49:36 06/10/20 15 06/11/2015 CMP, serum or plasm a BUN/creatini ne ratio 14 9-20 Not Available [facility] ([facility]) [address] [facility], [place], [address], 06/11/2015 08:49:36 06/10/20 15 06/11/2015 CMP, serum or plasm a sodium, serum 143 mmol/ L 134-14 4 Not Available [facility] ([facility]) [address] [place], [address], 06/11/2015 08:49:36 06/10/20 15 06/11/2015 CMP, serum or plasm a potassium, serum 4.0 mmol/ L 3.5-5. 2 Not Available [facility] ([facility]) [address] [facility], [place], [address], 06/11/2015 08:49:36 06/10/20 15 06/11/2015 CMP, serum or plasm a chloride, serum 101 mmol/ L 97-108 Not Available [facility] ([facility]) [address] [place], [address], 06/11/2015 08:49:36 06/10/20 15 06/11/2015 CMP, serum or plasm a carbon dioxide, total 24 mmol/ L 18-29 Not Available [facility] ([facility]) [address] [place], [address], 06/11/2015 08:49:36 06/10/20 15 06/11/2015 CMP, serum or plasm a calcium, serum 10.0 mg/dL 8.7-10 .2 Not Available [facility] ([facility]) [address] [place], [address], 06/11/2015 08:49:36 06/10/20 15 06/11/2015 CMP, serum or plasm a protein, total, serum 6.7 g/dL 6.0-8. 5 Not Available [facility] ([facility]) [address] [place], [address], 06/11/2015 08:49:36 06/10/20 15 06/11/2015 CMP, serum or plasm a albumin, serum 4.6 g/dL 3.5-5. 5 Not Available [facility] ([facility]) [address] [place], [address], 06/11/2015 08:49:36 06/10/20 15 06/11/2015 CMP, serum or plasm a globulin, total 2.1 g/dL 1.5-4. 5 Not Available [facility] ([facility]) [address] [place], [address], 06/11/2015 08:49:36 06/10/20 15 06/11/2015 CMP, serum or plasm a A/G ratio 2.2 1.1-2. 5 Not Available [facility] ([facility]) [address] [place], [address], 06/11/2015 08:49:36 06/10/2006/11/2015 CMP, serum or plasm a bilirubin, total 0.4 mg/dL 0.0-1. 2 Not Available [facility] ([facility]) [address] [place], [address], 06/11/2015 08:49:36 06/10/20 15 06/11/2015 CMP, serum or plasm a alkaline phosphatase, S 61 IU/L 39-117 Not Available [facility] ([facility]) [address] [place], [address], 06/11/2015 08:49:36 06/10/20 15 06/11/2015 CMP, serum or plasm a AST (SGOT) 26 IU/L 0-40 Not Available [facility] ([facility]) [address] [place], [address], 06/11/2015 08:49:36 06/10/20 15 06/11/2015 CMP, serum or plasm a ALT (SGPT) 39 IU/L 0-44 Not Available [facility] ([facility]) [address] [place], [address], 06/11/2015 08:49:36 06/10/20 15 06/11/2015 CBC WBC 11.8 x10e3 /uL 3.4-10 .8 above high normal Not Available [facility] ([facility]) [address] [place], [address], 06/11/2015 08:49:37 06/10/20 15 06/11/2015 CBC RBC 5.46 x10e6 /uL 4.14-5 .80 Not Available [facility] ([facility]) [address] [place], [address], 06/11/2015 08:49:37 06/10/20 15 06/11/2015 CBC hemoglobin 16.5 g/dL 12.6-1 7.7 Not Available [facility] ([facility]) [address] [place], [address], 06/11/2015 08:49:37 06/10/20 15 06/11/2015 CBC hematocrit 49.6 % 37.5-5 1.0 Not Available [facility] ([facility]) [address] [place], [address], 06/11/2015 08:49:37 06/10/20 15 06/11/2015 CBC MCV 91 fL 79-97 Not Available [facility] ([facility]) [address] [facility] [place], [address], 06/11/2015 08:49:37 06/10/20 15 06/11/2015 CBC MCH 30.2 pg 26.6-3 3.0 Not Available [facility] ([facility]) [address] [place], [address], 06/11/2015 08:49:37 06/10/20 15 06/11/2015 CBC MCHC 33.3 g/dL 31.5-3 5.7 Not Available [facility] ([facility]) [address] [place], [address], 06/11/2015 08:49:37 06/10/20 15 06/11/2015 CBC RDW 13.8 % 12.3-1 5.4 Not Available [facility] ([facility]) [address] [place], [address], 06/11/2015 08:49:37 06/10/20 15 06/11/2015 CBC platelets 165 x10e3 /uL 150-37 9 Not Available [facility] (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) [address] [place], [address], 06/11/2015 08:49:37 06/10/20 15 06/11/2015 TSH, serum or plasm a TSH 1.190 uIU/m L 0.450- 4.500 Not Available [facility] ([facility]) [address] [place], [address], 06/11/2015 08:49:37 07/10/20 20 07/10/2020 SARS CoV 2 RNA (COVI D-19) , QL, sole blacker-P CR, respi rator y speci men sars - cov - 2 PCR NEGATI VE mL Not Available [facility] (Lab) [address] [facility], [place], [address], 07/13/2020 20:28:33 07/10/20 20 07/10/2020 SARS CoV 2 RNA (COVI D-19) , QL, sole blacker-P CR, respi rator y speci men covidcom1 COMME NTS: This assay is desig sachi to detec t the RdRp and N genes of SARS- CoV-2 using nucle ic acid ampli ficat ion. A negat kristina resul t does not precl ude the possi bilit y of 2019- nCoV infec tion since the adequ acy of sampl e colle ction and/o r low viral burde n may resul t in the prese nce of viral nucle ic acids level s below the jerald tical sensi tivit y of this test metho d. Not Available [facility] (Lab) [address] [facility], [place], [address], 07/13/2020 20:28:33 07/10/20 20 07/10/2020 SARS CoV 2 RNA (COVI D-19) , QL, sole blacker-P CR, respi rator y speci men covidcom2 Posit kristina resul ts are indic ative of the prese nce of SARS- CoV-2 RNA and do not rule out bacte rial infec tion or co-in fecti on with other virus es. Not Available [facility] (Lab) [address] [facility], [place], [address], 07/13/2020 20:28:33 07/10/20 20 07/10/2020 SARS CoV 2 RNA (COVI D-19) , QL, sole blacker-P CR, respi rator y speci men covidcom3 Test resul ts shoul d be used along with other clini sam obser vatio ns, patie nt histo ry, epide miolo gical infor matio n and labor atory data in tam henriquez the diagn osis. Not Available [facility] (Lab) [address] [facility], [place], [address], 07/13/2020 20:28:33 07/10/20 20 07/10/2020 SARS CoV 2 RNA (COVI D-19) , QL, sole blacker-P CR, respi rator y speci men covidcom4 This test has recei merlene [facility] Emerg ency Use Autho rizat ion and has been verif ied by [facility] . This test is only autho rized for the durat ion of the decla ratio n and the circu mstan radha that exist to justi fy the autho rizat ion of the emerg ency use of in vitro diagn ostic tests for the detec tion of SARS- CoV-2 virus and/o r diagn osis of COVID -19 infec tion under secti on 564 (b) (1) of the Act. 11 U.S.C . 360bb b-3 (b) (1), unles s the autho rizat ion is termi nated or revok ed soone r. Not Available [facility] (Lab) [address] [place], [address], 07/13/2020 20:28:33 07/10/20 20 07/10/2020 SARS CoV 2 RNA (COVI D-19) , QL, sole blacker-P CR, respi rator y speci men covidcom5 [facility] is certi fied under CLIA- 88 as quali fied to perfo rm high compl exity testi ng. This testi ng was perfo rmed in the [facility] [employer] [place] [address] (CLIA Licen se #[id number], CAP #[id number], AU-ID #[id number]). Not Available [facility] (Lab) [address] [place], [address], 07/13/2020 20:28:33 07/10/20 20 07/10/2020 SARS CoV 2 RNA (COVI D-19) , QL, sole blacker-P CR, respi rator y speci men covidcom6 Facts heet for healt hcare provi ders: https ://ww w.fda .gov/ media /1362 56/do wnloa d Facts heet for patie nts: https ://ww w.fda .gov/ media /1362 57/do wnloa d Not Available [facility] (Lab) [address], [place], [address], 07/13/2020 20:28:33 02/29/20 24 03/01/2024 LIPID PANEL cholesterol, total 196 mg/dL 100-19 9 Not Available [facility] ([facility]) [address] [place], [address], 03/01/2024 06:18:37 02/29/20 24 03/01/2024 LIPID PANEL triglyceride s 220 mg/dL 0-149 above high normal Not Available [facility] ([facility]) [address] [place], [address], 03/01/2024 06:18:37 02/29/20 24 03/01/2024 LIPID PANEL HDL cholesterol 36 mg/dL >39 below low normal Not Available [facility] ([facility]) [address] [place], [address], 03/01/2024 06:18:37 02/29/20 24 03/01/2024 LIPID PANEL VLDL cholesterol sam 39 mg/dL 5-40 Not Available [facility] ([facility]) [address] [place], [address], 03/01/2024 06:18:37 02/29/20 24 03/01/2024 LIPID PANEL LDL chol calc ([facility]) 121 mg/dL 0-99 above high normal Not Available [facility] ([facility]) [address] [place], [address], 03/01/2024 06:18:37 02/29/20 24 03/01/2024 COMP. METAB OLIC PANEL (14) glucose 96 mg/dL 70-99 Not Available [facility] ([facility]) [address] [place], [address], 03/01/2024 06:18:38 02/29/20 24 03/01/2024 COMP. METAB OLIC PANEL (14) BUN 16 mg/dL 6-24 Not Available [facility] ([facility]) [address] [place], [address], 03/01/2024 06:18:38 02/29/20 24 03/01/2024 COMP. METAB OLIC PANEL (14) creatinine 0.96 mg/dL 0.76-1 .27 Not Available [facility] ([facility]) [address] [facility], [place], [address], 03/01/2024 06:18:38 02/29/20 24 03/01/2024 COMP. METAB OLIC PANEL (14) eGFR 94 mL/mi n/1.7 3 >59 Not Available [facility] ([facility]) [address] [facility], [place], [address], 03/01/2024 06:18:38 02/29/20 24 03/01/2024 COMP. METAB OLIC PANEL (14) BUN/creatini ne ratio 17 9-20 Not Available [facility] ([facility]) [address] [facility], [place], [address], 03/01/2024 06:18:38 02/29/20 24 03/01/2024 COMP. METAB OLIC PANEL (14) sodium 138 mmol/ L 134-14 4 Not Available [facility] ([facility]) [address] [facility], [place], [address], 03/01/2024 06:18:38 02/29/20 24 03/01/2024 COMP. METAB OLIC PANEL (14) potassium 4.6 mmol/ L 3.5-5. 2 Not Available [facility] ([facility]) [address] [facility], [place], [address], 03/01/2024 06:18:38 02/29/20 24 03/01/2024 COMP. METAB OLIC PANEL (14) chloride 103 mmol/ L 96-106 Not Available [facility] ([facility]) [address] [place], [address], 03/01/2024 06:18:38 02/29/20 24 03/01/2024 COMP. METAB OLIC PANEL (14) carbon dioxide, total 19 mmol/ L 20-29 below low normal Not Available [facility] ([facility]) [address] [facility], [place], [address], 03/01/2024 06:18:38 02/29/20 24 03/01/2024 COMP. METAB OLIC PANEL (14) calcium 9.9 mg/dL 8.7-10 .2 Not Available [facility] ([facility]) [address] [place], [address], 03/01/2024 06:18:38 02/29/20 24 03/01/2024 COMP. METAB OLIC PANEL (14) protein, total 6.8 g/dL 6.0-8. 5 Not Available [facility] ([facility]) [address] [place], [address], 03/01/2024 06:18:38 02/29/20 24 03/01/2024 COMP. METAB OLIC PANEL (14) albumin 4.4 g/dL 3.8-4. 9 Not Available [facility] ([facility]) [address] [place], [address], 03/01/2024 06:18:38 02/29/20 24 03/01/2024 COMP. METAB OLIC PANEL (14) globulin, total 2.4 g/dL 1.5-4. 5 Not Available [facility] ([facility]) [address] [place], [address], 03/01/2024 06:18:38 02/29/20 24 03/01/2024 COMP. METAB OLIC PANEL (14) A/G ratio 1.8 1.2-2. 2 Not Available [facility] ([facility]) [address] [place], [address], 03/01/2024 06:18:38 02/29/20 24 03/01/2024 COMP. METAB OLIC PANEL (14) bilirubin, total 0.3 mg/dL 0.0-1. 2 Not Available [facility] ([facility]) [address] [place], [address], 03/01/2024 06:18:38 02/29/20 24 03/01/2024 COMP. METAB OLIC PANEL (14) alkaline phosphatase 64 IU/L 44-121 Not Available [facility] ([facility]) [address] [place], [address], 03/01/2024 06:18:38 02/29/20 24 03/01/2024 COMP. METAB OLIC PANEL (14) AST (SGOT) 25 IU/L 0-40 Not Available [facility] ([facility]) [address] [place], [address], 03/01/2024 06:18:38 02/29/20 24 03/01/2024 COMP. METAB OLIC PANEL (14) ALT (SGPT) 41 IU/L 0-44 Not Available [facility] ([facility]) [address] [place], [address], 03/01/2024 06:18:38 02/29/20 24 02/29/2024 HEMOG LOBIN A1C hemoglobin A1C 5.9 % 4.8-5. 6 above high normal Predi abete s: 5.7 - 6.4 Diabe chichi: >6.4 Glyce gama contr ol for adult s with diabe chichi: <7.0 Not Available [facility] ([facility]) [address] [place], [address], 03/01/2024 06:18:39 02/29/20 24 03/01/2024 TSH TSH 1.440 uIU/m L 0.450- 4.500 Not Available [facility] ([facility]) [address] [place], [address], 03/01/2024 06:18:40 02/29/20 24 02/29/2024 CBC WITH DIFFE RENTI AL/PL ATELE T WBC 10.1 x10e3 /uL 3.4-10 .8 Not Available [facility] ([facility]) [address] [place], [address], 03/01/2024 06:18:40 02/29/2002/29/2024 CBC WITH DIFFE RENTI AL/PL ATELE T RBC 5.93 x10e6 /uL 4.14-5 .80 above high normal Not Available [facility] ([facility]) [address] [place], [address], 03/01/2024 06:18:40 02/29/20 24 02/29/2024 CBC WITH DIFFE RENTI AL/PL ATELE T hemoglobin 17.7 g/dL 13.0-1 7.7 Not Available [facility] ([facility]) [address] [place], [address], 03/01/2024 06:18:40 02/29/20 24 02/29/2024 CBC WITH DIFFE RENTI AL/PL ATELE T hematocrit 53.2 % 37.5-5 1.0 above high normal Not Available [facility] ([facility]) [address] [place], [address], 03/01/2024 06:18:40 02/29/2002/29/2024 CBC WITH DIFFE RENTI AL/PL ATELE T MCV 90 fL 79-97 Not Available [facility] ([facility]) [address] [place], [address], 03/01/2024 06:18:40 02/29/20 24 02/29/2024 CBC WITH DIFFE RENTI AL/PL ATELE T MCH 29.8 pg 26.6-3 3.0 Not Available [facility] ([facility]) [address] [facility], [place], [address], 03/01/2024 06:18:40 02/29/20 24 02/29/2024 CBC WITH DIFFE RENTI AL/PL ATELE T MCHC 33.3 g/dL 31.5-3 5.7 Not Available [facility] ([facility]) [address] [facility], [place], [address], 03/01/2024 06:18:40 02/29/20 24 02/29/2024 CBC WITH DIFFE RENTI AL/PL ATELE T RDW 12.8 % 11.6-1 5.4 Not Available [facility] ([facility]) [address] [facility], [place], [address], 03/01/2024 06:18:40 02/29/20 24 02/29/2024 CBC WITH DIFFE RENTI AL/PL ATELE T platelets 175 x10e3 /uL 150-45 0 Not Available [facility] ([facility]) [address] [facility], [place], [address], 03/01/2024 06:18:40 02/29/20 24 02/29/2024 CBC WITH DIFFE RENTI AL/PL ATELE T neutrophils 62 % notest ab. Not Available [facility] ([facility]) [address] [facility], [place], [address], 03/01/2024 06:18:40 02/29/20 24 02/29/2024 CBC WITH DIFFE RENTI AL/PL ATELE T lymphs 19 % notest ab. Not Available [facility] ([facility]) [address] [facility], [place], [address], 03/01/2024 06:18:40 02/29/20 24 02/29/2024 CBC WITH DIFFE RENTI AL/PL ATELE T monocytes 12 % notest ab. Not Available [facility] ([facility]) [address] [facility], [place], [address], 03/01/2024 06:18:40 02/29/20 24 02/29/2024 CBC WITH DIFFE RENTI AL/PL ATELE T eos 5 % notest ab. Not Available [facility] ([facility]) [address] [facility], [place], [address], 03/01/2024 06:18:40 02/29/20 24 02/29/2024 CBC WITH DIFFE RENTI AL/PL ATELE T basos 1 % notest ab. Not Available [facility] ([facility]) [address] [facility], [place], [address], 03/01/2024 06:18:40 02/29/20 24 02/29/2024 CBC WITH DIFFE RENTI AL/PL ATELE T neutrophils (absolute) 6.3 x10e3 /uL 1.4-7. 0 Not Available [facility] ([facility]) [address] [facility], [place], [address], 03/01/2024 06:18:40 02/29/20 24 02/29/2024 CBC WITH DIFFE RENTI AL/PL ATELE T lymphs (absolute) 1.9 x10e3 /uL 0.7-3. 1 Not Available [facility] ([facility]) [address] [facility], [place], [address], 03/01/2024 06:18:40 02/29/20 24 02/29/2024 CBC WITH DIFFE RENTI AL/PL ATELE T monocytes(ab solute) 1.3 x10e3 /uL 0.1-0. 9 above high normal Not Available [facility] ([facility]) [address] [facility], [place], [address], 03/01/2024 06:18:40 02/29/20 24 02/29/2024 CBC WITH DIFFE RENTI AL/PL ATELE T eos (absolute) 0.5 x10e3 /uL 0.0-0. 4 above high normal Not Available [facility] ([facility]) [address] [place], [address], 03/01/2024 06:18:40 02/29/20 24 02/29/2024 CBC WITH DIFFE RENTI AL/PL ATELE T baso (absolute) 0.1 x10e3 /uL 0.0-0. 2 Not Available [facility] ([facility]) [address] [place], [address], 03/01/2024 06:18:40 02/29/20 24 02/29/2024 CBC WITH DIFFE RENTI AL/PL ATELE T immature granulocytes 1 % notest ab. Not Available [facility] ([facility]) [address] [place], [address], 03/01/2024 06:18:40 02/29/20 24 02/29/2024 CBC WITH DIFFE RENTI AL/PL ATELE T immature grans (abs) 0.1 x10e3 /uL 0.0-0. 1 Not Available [facility] ([facility]) [address] [place], [address], 03/01/2024 06:18:40 02/29/20 24 03/01/2024 PROST ATE-S PECIF IC AG prostate specific Ag 0.6 NG/mL 0.0-4. 0 Mauricio ECLIA metho dolog y. Accor ding to the Ameri can Urolo gical Assoc iatio n, Serum PSA shoul d decre ase and remai n at undet ectab le level s after radic al prost atect julieth. The AUA defin es bioch emica l recur rence as an initi al PSA value 0.2 ng/mL or great er follo wed by a subse quent confi rmato ry PSA value 0.2 ng/mL or great er. Value s obtai sachi with diffe rent assay metho ds or kits canno t be used inter duncan eawilfredo . Resul ts canno t be inter prete d as absol [place] [facility] n[facility] of the prese nce or absen ce of [place] se. Not Available [facility] ([facility]) [address], [place], [address], 03/01/2024 06:18:41 06/07/20 18 06/07/2018 elect lico vo am inter preta tion* No observ ation record ed. [facility] (Radiology) [address] [place] [address], [address], 06/10/2018 15:38:20 10/04/20 19 10/04/2019 cysto ureth prisca py, with injec tions for chemo dener vatio n of the bla er (PROC ) No observ ation record ed. [email or web address] Not Available 10/09 12:01:14 Result Notes None recorded. Problems Name Problem SNOMED Code Status Onset Date Resolution Date Notes Provider Name and Address Organization Details Recorded Time Calculus of kidney and ureter 857352203 Active Vicente Land MD Attn: Accounting ,[address] [facility], [place], [address] , [facility] 5 17:37:31 Problem Notes None recorded. Procedures Surgical History Date Name Laterality Status Provider Name and Address Organization Details Recorded Time surgical manipulation of elbow joint completed Jane Kim MA [facility] 11/11/2022 12:20:23 thumb surgery completed Jane Kim MA [facility] 11/11/2022 12:20:32 operation on urinary bladder completed Jane Kim [place] [facility] 11/11/2022 12:20:58 Back Surgery completed Jane Kim [place] [facility] 11/11/2022 12:20:11 Knee Surgery completed Leticia Méndez RN [place] [facility] 06/10/2015 16:56:50 Imaging Results Imaging Date Name Status LastModified by Organization Details LastModified Time 06/07/2018 electrocardiogram interpretation* completed [facility] (Radiology) [address] [place], [address], 06/10/2018 15:38:20 10/04/2019 cystourethroscopy, with injections for chemodenervation of the bladder (PROC) completed [email or web address] Information not available 10/09/2019 12:01:14 Procedure Notes None recorded. Medical Equipment None Reported. Allergies Allergen ID Allergen Name Allergen Category Reaction Reaction Severity Criticality Documentation Date Start Date Code Code System Note Provider Name and Address Organization Details Recorded Time [id number] 33e41 morphine medicatio n other severe Not available 06/10/2015 7052 RxNorm SEVER E VOMIT ING follo wed by per pt Not Available Not Available Not Available [id number] latex environme nt,medica tion rash Not available Not available 06/10/2015 90824 91 RxNorm Not Available Not Available Not Available Medications Name Sig Start Date Stop Date Status Note LastModified by Organization Details LastModified Time amoxicillin 500 mg capsule TAKE 1 CAPSULE BY MOUTH THREE TIMES DAILY UNTIL GONE 12/13 completed Not Available Not Available Not Available terazosin 5 mg capsule Take 1 capsule every day by oral route. 11/11 completed Not Available Not Available Not Available lisinopril 20 mg tablet TAKE 1 TABLET BY MOUTH ONCE DAILY active Not Available Not Available No t Available acetaminoph en 300 mg-codeine 30 mg tablet TAKE 1 TABLET BY MOUTH EVERY 4 TO 6 HOURS NEEDED FOR PAIN 12/13 completed Not Available Not Available Not Available sulfamethox azole 800 mg-trimetho prim 160 mg tablet 07/04 completed Not Available Not Available Not Available tramadol 50 mg tablet Take 1 tablet twice a day by oral route as needed. 11/11 completed Not Available Not Available Not Available bupropion HCl SR 100 mg tablet,12 hr sustained-r elease Take 1 tablet by mouth twice daily 2024 active Not Available Not Available Not Avai lable ofloxacin 0.3 % ear drops INSTILL 10 DROPS INTO RIGHT EAR DAILY FOR 7 DAYS 11/11 completed Not Available Not Available Not Available lisinopril 10 mg tablet TAKE 1 TABLET BY MOUTH ONCE DAILY AFTER A MEAL FOR 90 DAYS active Not Available Not Available No t Available methylpredn isolone 4 mg tablets in a dose pack TAKE BY MOUTH DIRECTED ON INSIDE OF PACKAGE 12/13 completed Not Available Not Available Not Available celecoxib 100 mg capsule TAKE 1 CAPSULE BY MOUTH TWICE DAILY NEEDED 2023 active Not Available Not Available Not Avai lable oxybutynin chloride 5 mg tablet 11/11 completed Not Available Not Available Not Available ondansetron 4 mg disintegrat ing tablet DISSOLVE 1 TABLET IN MOUTH EVERY 8 HOURS NEEDED FOR NAUSEA AND VOMITING 02/28 completed Not Available Not Available Not Available naproxen 500 mg tablet Take 1 tablet twice a day by oral route with meals. 11/11 completed Not Available Not Available Not Available cholestyram ine (with sugar) 4 gram powder for susp in a packet TAKE 1 PACKET TWICE A DAY BY ORAL ROUTE NEEDED active Not Available Not Available No t Available chlorhexidi ne gluconate 0.12 % mouthwash 11/11 completed Not Available Not Available Not Available Pataday Twice Daily Relief 0.1 % eye drops INSTILL 1 DROP INTO AFFECTED EYE(S) BY OPHTHALMI C ROUTE 2 TIMES PER DAY AT AN INTERVAL OF 6 TO 8 HOURS 2023 active Not Available Not Available Not Avai lable Vitals Date Recorded Body weight Provider Name an d Address Organization Details Last Updated DateTime 07/04/2018 83768.18 g Jane Kim MA [facility] 2017 10:47:24 Date Recorded Heart rate Provider Name an d Address Organization Details Last Updated DateTime 07/04/2018 64 /min Jane Kim MA [facility] 2017 10:49:57 Date Recorded Respiratory rate Provider Name a nd Address Organization Details Last Updated DateTime 07/04/2018 16 /min Jane Kim MA [facility] 07/04/2018 10:49:59 Date Recorded Body temperature Provider Name a nd Address Organization Details Last Updated DateTime 07/04/2018 97.6 [degF] Jane Kim MA [facility] 07/04/2018 10:50:28 Date Recorded Body temperature Provider Name a nd Address Organization Details Last Updated DateTime 06/10/2015 98.4 [degF] Leitcia Méndez RN [facility] 015 16:36:25 Date Recorded Respiratory rate Body weight Oxygen saturation Oxygen saturation in Arterial blood by Pulse oximetry Body height Body mass index (BMI) Heart rate Systolic blood pressure Diastolic blood pressure Provider Name and Address Organization Details Last Updated DateTime 5 18 /min 75450.7 75380 g 97 % 97 % 157.48 cm 34.9 kg/m2 71 /min 122 mm[Hg] 72 mm[Hg] Leticia Méndez RN [facility] 5 17:18:36 Date Recorded Body height Provider Name an d Address Organization Details Last Updated DateTime 11/11/2022 157.48 cm CHEY Crawford [facility] 2021 12:12:46 Date Recorded Body mass index (BMI) Body weight Provider Name and Address Organization Details Last Updated DateTime 11/11/2022 39.4 kg/m2 34129.76 g CHEY Crawford [facility] 11/11/2022 12:12:55 Date Recorded Oxygen saturation Oxygen saturation in Arterial blood by Pulse oximetry Provider Name and Address Organization Details Last Updated DateTime 11/11/2022 96 % 96 % CHEY Crawford [facility] 11/11/2022 12:13:02 Date Recorded Heart rate Provider Name an d Address Organization Details Last Updated DateTime 11/11/2022 88 /min CHEY Crawford [facility] 2021 12:13:05 Date Recorded Respiratory rate Provider Name a nd Address Organization Details Last Updated DateTime 11/11/2022 16 /min CHEY Crawford [facility] 11/11/2022 12:13:08 Date Recorded Body temperature Provider Name a nd Address Organization Details Last Updated DateTime 11/11/2022 97.8 [degF] CHEY Crawford [facility] 11/11/2022 12:13:13 Date Recorded Body height Provider Name an d Address Organization Details Last Updated DateTime 02/29/2024 157.48 cm CHEY Crawford [facility] 2023 10:53:58 Date Recorded Body mass index (BMI) Body weight Provider Name and Address Organization Details Last Updated DateTime 02/29/2024 36.7 kg/m2 69257.92 g Jane Kim MA [facility] 02/29/2024 10:54:11 Date Recorded Oxygen saturation Oxygen saturation in Arterial blood by Pulse oximetry Provider Name and Address Organization Details Last Updated DateTime 02/29/2024 98 % 98 % Jane Kim MA [facility] 02/29/2024 10:54:21 Date Recorded Heart rate Provider Name an d Address Organization Details Last Updated DateTime 02/29/2024 106 /min Jane Kim MA [facility] 2023 10:54:35 Date Recorded Respiratory rate Provider Name a nd Address Organization Details Last Updated DateTime 02/29/2024 16 /min Jane Kim MA [facility] 02/29/2024 10:54:37 Date Recorded Body temperature Provider Name a nd Address Organization Details Last Updated DateTime 02/29/2024 96.6 [degF] Jane Kim MA [facility] 02/29/2024 10:54:46 Date Recorded Systolic blood pressure Diastolic blood pressure Provider Name and Address Organization Details Last Updated DateTime 07/04/2018 120 mm[Hg] 76 mm[Hg] Jane Kim MA [facility] 07/04/2018 10:51:26 Date Recorded Systolic blood pressure Diastolic blood pressure Provider Name and Address Organization Details Last Updated DateTime 11/11/2022 170 mm[Hg] 100 mm[Hg] Jane Kim MA [facility] 11/11/2022 12:12:38 Date Recorded Systolic blood pressure Diastolic blood pressure Provider Name and Address Organization Details Last Updated DateTime 11/11/2022 158 mm[Hg] 100 mm[Hg] Jane Kim MA [facility] 11/11/2022 12:23:22 Date Recorded Systolic blood pressure Diastolic blood pressure Provider Name and Address Organization Details Last Updated DateTime 02/29/2024 141 mm[Hg] 93 mm[Hg] Jane Kim MA [facility] 02/29/2024 11:00:06 Social History Question Answer Notes LastModified by Organizat ion Details LastModified Time Tobacco Smoking Status Former Smoker started the nicotine pouches last year. 2022 Jane Kim MA [facility], [facility] 02/29/2024 10:57:25 Do You Have An Advance Directive? No Information not available 11/11/2022 What Is Your Level Of Alcohol Consumption? Occasional Information not available 11/11/2022 Are You Blind Or Do You Have Difficulty Seeing? No Information not available 11/11/2022 What Is Your Level Of Caffeine Consumption? Heavy NO Soda Large Coffee A Day, Sometimes A Tea Usually Water Information not available 11/11/2022 In The 14 Days Before Symptom Onset, Have You Had Close Contact With A Laboratory-confi rmed COVID-19 While That Case Was Ill? No Information not available 11/11/2022 In The 14 Days Before Symptom Onset, Have You Had Close Contact With A Person Who Is Under Investigation For COVID-19 While That Person Was Ill? No Information not available 11/11/2022 Have You Been To An Area Known To Be High Risk For COVID-19? No Information not available 11/11/2022 Are You Currently Employed? Yes Information not available 11/11/2022 Are You Deaf Or Do You Have Serious Difficulty Hearing? Yes Hearing Aides Information not available 11/11/2022 What Type Of Diet Are You Following? REGULAR Information not available 11/11/2022 Do You Or Have You Ever Used E-cigarettes Or Vape? 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 02/29/2024 Information not available 02/29/2024 How Many Children Do You Have? 1 Information not available 11/11/2022 What Is Your Current Pack Years? 30ormorepacky ears Information not available 11/11/2022 What Is Your Relationship Status? Information not available 11/11/2022 Do You Use Your Seat Belt Or Car Seat Routinely? Yes Information not available 11/11/2022 Are You Sexually Active? Yes Information not available 11/11/2022 Do You Have Smoke And Carbon Monoxide Detectors In Your Home? Yes Information not available 11/11/2022 At What Age Did You Start Smoking Tobacco? 14 Information not available 11/11/2022 Are You Passively Exposed To Smoke? No Information not available 11/11/2022 Do You Or Have You Ever Used Smokeless Tobacco? Currently Uses Moist Powdered Tobacco Information not available 02/29/2024 How Much Tobacco Do You Smoke? 1 PPD [email or web address] Information not available 06/10/2015 Do You Feel Stressed (tense, Restless, Nervous, Or Anxious, Or Unable To Sleep At Night)? [id number] Information not available 11/11/2022 Do You Use Any Illicit Or Recreational Drugs? No Information not available 11/11/2022 Do You Use Sunscreen Routinely? Yes When In Sun Information not available 11/11/2022 Has Tobacco Cessation Counseling Been Provided? Yes Information not available 11/11/2022 On What Date Was Tobacco Cessation Counseling Provided? 02/29/2024 Information not available 02/29/2024 How Many Years Have You Smoked Tobacco? 38 Cigarettes Information not available 11/11/2022 Do You Or Have You Ever Used Any Other Forms Of Tobacco Or Nicotine? Yes Information not available 11/11/2022 How Many Years Have You Used E-cigarettes Or Vape? 1 Information not available 11/11/2022 Sex: Male Functional Status Question Answer Note LastModified by Organization D etails LastModified Time Are you able to care for yourself? Yes Information n ot available 11/11/2022 What is your exercise level? None Information not available 11/11/2022 Mental Status None recorded. Family History Relationship Description Onset Age of this Age Resolved Age Notes LastModified by Organization Details LastModified Time Father Asthma [email or web address] Not available 06/10/2015 16:56:51 Father Cerebrovascu lar accident [email or web address] Not available 16:56:51 Father Coronary arterioscler osis [email or web address] Not available 2014 16:56:51 Father Diabetes mellitus [email or web address] Not available 2014 16:56:51 Father Heart disease [email or web address] Not available 2014 16:56:51 Father Kidney disease [email or web address] Not available 2014 16:56:51 Father 2014 [email or web address] Not available 11/11/2022 12:16:03 Mother Liposarcoma [email or web address] Not avai lable 11/11/2022 12:15:27 Notes:No new reported 4 Medical History Condition Response High Blood Pressure Y Cancer Y Depression Y Asthma Y Past Encounters Encounter ID Performer Location Encounter Start Date Encounter Closed Date Diagnosis/Indication Diagnosis SNOMED-CT Code Diagnosis ICD10 Code Diagnosis Note [id number] Savannah Contreras [facility] [address] [place] [address] 06/10/2015 16:06:29 06/11/2015 09:24:48 Calculus of kidney and ureter 632673605 [id number] MD Bob Phelps 14 IM [address] [facility] [address] [place] [address] 07/04/2018 10:36:57 07/06/2018 12:16:27 Trying to give up smoking 814715623 Z72.0 History of malignant neoplasm of bladder 999313996 Z85.51 [id number] RAFAEL Warner [address] [place] [address] 07/10/2020 12:10:48 07/11/2020 16:47:41 Suspected COVID-19 250556421 Z03.818 D/w pt the current pandemic of COVID-19 and call for social isolation in order to blunt the curve and minimize risk and spread. Encouraged patient and family to take restrictio ns seriously. They have verbalized understand ing of such. Viral syndrome 880685451 B34.9 [id number] MD Bob Phelps 14 IM [address] [facility] [place] [address] 11/11/2022 11:39:01 11/13/2022 14:19:45 Trying to give up smoking 698367365 Z72.0 Obesity 325374824 E66.9 Screening for malignant neoplasm of prostate 945992009 Z12.5 Screening for malignant neoplasm of colon 654170271 Z12.11 cologuard was discussed Vitamin D deficiency 347 23868 E55.9 Essential hypertension 59205478 I10 Osteoarthritis 937380013 M19.90 [id number] MD Bob Phelps 14 IM [address] [facility] [place] [address] 02/29/2024 10:46:42 03/07/2024 11:26:39 Tetanus vaccination declined by patient 804433452 Z28.21 Colon canc er screening declined 8392967012 9109 Z53.20 Benign ess ential hypertension 3402265 I10 Obesity 516750483 E66.9 Screening for malignant neoplasm of prostate 190508352 Z12.5 Allergic conjunctivitis of bilateral eyes 0962345559 63758 H10.13 Sleep apnea 01357780 G47 .30 [facility] Concerns Section Related Observation LastModified by Organization Detai ls LastModified Time None Recorded Concern Status LastModified by Organization Details LastModified Time None Recorded Advance Directives Directive N: Payers Encounter Date Sequence Insurance Name Policy Number Policy [place] Covered Member ID [place] Member ID Guarantor Name 06/10/2015 1 [id number] Julio Saucedo [id number] Julio Saucedo 07/04/2018 1 [place] [id number] Julio Saucedo [id number] Julio Saucedo 07/10/2020 1 [facility] [id number] Julio Saucedo [id number] Julio Saucedo 11/11/2022 1 [facility] [id number] Julio Saucedo [id number] Julio Saucedo 02/29/2024 1 [place] [id number] Julio Saucedo [id number] Julio Saucedo Notes Date Note Type Note Provider Name and Address Organization Details Recorded Time 06/10/2015 text/html Patient does hav e a hx of kidney stones. He describes passing connor blood during the last two days. Blood is much less today. He does not know if he passed a stone or not. Vicente Land MD Attn: Accounting,[address] [facility], [place], [address], [facility] 06/10/2015 17:52:30 07/04/2018 text/html Pt wishes to [place] t smoking after recently been treated for bladder cancer. Vicente Land MD Attn: Accounting,[address] [facility], [place], [address], [facility] 07/05/2018 13:57:03 07/10/2020 text/html COVID ScreeningReported bypatient.Onset/Durati on of fever:no fever Associated Symptoms:no cough; no shortness of breathCOVID-19 Symptoms March 2020Reported bypatient.COVID-19 Signs and Symptomscough resolved; fever resolved; shortness of breath resolved; chills resolved; repeated shaking with chills resolved; muscle pain resolved; headache resolved; sore throat resolved; loss of taste or smell resolved; vomiting or diarrhea resolved; fatigue resolved; anorexia resolved Contacts and Exposureclose contact with a confirmed or suspected case of COVID-19; close proximity with person with COVID-19 Associated Symptoms:no sputum production; no wheezing; no runny nose; no vomiting; no diarrhea; no body aches; no nausea; no change in mental status; no hypotension; no tachycardia 49 yo male ,spoke via phone with C/O, denies having any COVID-19 symptoms. 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 YANY Xiong NP Attn: Accounting,[address] [facility], [place], [address], [place] [facility] 07/10/2020 13:00:09 11/11/2022 text/html First visit [facility] June 2018. Vicente Land MD Attn: Accounting,[address] [facility], [place], [address], [place] [facility] 11/12/2022 13:07:17 02/29/2024 text/html [facility] visit [facility] October 2022. Vicente Land MD Attn: Accounting,[address] [facility], [place], [address], [facility] 03/02/2024 11:26:13
== END 2024-12-07 15:38 | disposition home or self-care (01) ==
PROVIDERS: Emergency Provider Nurse Practitioner Family; PCP Family Medicine
DX: J40 Bronchitis, not specified as acute or chronic (principal); H66.001 Acute suppurative otitis media without spontaneous rupture of ear drum, right ear; Z20.822 Contact with and (suspected) exposure to COVID-19; F17.200 Nicotine dependence, unspecified, uncomplicated; I10 Essential (primary) hypertension; Z85.51 Personal history of malignant neoplasm of bladder
CPT/HCPCS: 87426; 87804; 99213; G0463